=== PATIENT | male | born 1985 | race Caucasian/White ===

== ENCOUNTER 2017-05-30 00:46 | Emergency (ER) | payer OTHER ==
[2017-05-30 01:04] VITALS: BP 134/81; PULSE 83; TEMP 98.2; BMI 28.7
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
--- NOTE | 2017-05-30 01:43 | PDOC ---
*Physical Exam - Vital Signs Last Vital Signs Temp Pulse Resp BP Pulse Ox 98.2 F 83 18 134/81 99 05/30/17 00:57 05/30/17 00:57 05/30/17 00:57 05/30/17 00:57 05/30/17 00:57 Medical Decision Making - Medical Decision Making 05/30/17 01:42 agree with care from ORGAN TUNER Farooq *DC/Admit/Observation/Transfer Diagnosis at time of Disposition: Exposure to blood or body fluid - Discharge Dispostion Disposition: HOME Condition at time of disposition: Stable - Referrals Referrals: Nadiya Sims [Primary Care Provider] - - Patient Instructions Printed Discharge Instructions: How to Handle Body Fluid Exposure -- Non- Healthcare Worker (At Home, [facility] Additional Instructions: Follow up with your doctor as needed or if you change your mind about post exposure medications. Print Language: ARMENIAN - Post Discharge Activity Forms/Work/School Notes: Back to Work
== END 2017-05-30 02:22 | disposition home or self-care (01) ==
LOC: JER 00:46
DX: Z77.21 Contact with and (suspected) exposure to potentially hazardous body fluids (principal); Y35.891A Legal intervention involving other specified means, law enforcement official injured, initial encounter; X58.XXXA Exposure to other specified factors, initial encounter; Y93.89 Activity, other specified; Y92.9 Unspecified place or not applicable; Y99.0 Civilian activity done for income or pay
CPT/HCPCS: 99281-25